=== PATIENT | male | born 2000 | race Two or more races ===

== ENCOUNTER 2024-09-08 21:59 | Emergency (ER) | payer OTHER ==
[~2024-09-08] VITALS: Ht 190.5 cm; Wt 90.2 kg
[2024-09-08 23:11] VITALS: BP 137/62; PULSE 87; RESP 19; TEMP 98.6; O2SAT 96
[2024-09-08] MEDS ORDERED: LIDOCAINE HCL 2 % INJ 2ML MPF NEB ONE (23:30)
--- NOTE | 2024-09-09 00:11 | DVH ---
CLINICAL INDICATION: DOG BITE PUNCTURE WOUND PALM TECHNIQUE: XY R HAND 3 VIEW XRAY Comparison: None FINDINGS/IMPRESSION: : 1. No acute fracture or traumatic malalignment. 2. Normal mineralization alignment. Joint spaces are preserved. 3. No radiopaque foreign body 4. Soft tissue swelling and soft tissue emphysema and laceration at the volar aspect of the 3rd digit at the level of the distal middle phalanx and distal interphalangeal joint.
[2024-09-09] MEDS ORDERED: AUG875T PO (00:48)
--- NOTE | 2024-09-09 00:48 | ED.PDOC ---
History of Present Illness(SKN HPI Comments THIS IS A 24-YEAR-OLD MALE PRESENTS TO THE ED STATUS POST DOG BITE. PATIENT STATES SHE HAD A PUSHES DOG'S FACE SOY FROM THE YOUNGER CHILD AND A BIT HIS RIGHT HAND IN THE PALM ASPECT. NOTED 1/2 INCH LACERATION BLEEDING CONTROLLED NO NOTED DRAINAGE NOTED SURROUNDING ERYTHEMA SENSORY STRENGTH AND MOTION INTACT DENIES NUMBNESS OR WEAKNESS Chief Complaint: Animal Bite Time Seen by MD: 22:00 History of Present Illness: Nurses Notes, Medications, Allergies Allergies: Coded Allergies: NO KNOWN ALLERGIES (Unverified , 09/08/24) Home Meds Active Scripts Amoxicillin & Pot Clavulanate (AUGMENTIN TABLET) 875 Mg Tb, 1 TAB PO BID for 7 Days, #14 TAB Prov:COLUMBA PACHECO WINDOW SHADE ESTIMATOR 09/09/24 Information Source: Significant Other Mode of Arrival: Ambulatory Past Medical History PAST MEDICAL HISTORY: Denies Surgical History: Denies all surgeries Family History Family History: Reviewed,noncontributory to illness Social History Smoker: Non-Smoker Alcohol: Denies ETOH Use Drugs: Denies Drug Use Constitutional: denies: chills, diaphoresis, fatigue, fever, malaise, sweats, weakness, others EENTM: denies: blurred vision, double vision, ear bleeding, ear discharge, ear drainage, ear pain, ear ringing, eye pain, eye redness, hearing loss, mouth pain, mouth swelling, nasal discharge, nose bleeding, nose congestion, nose pain, photophobia, tearing, throat pain, throat swelling, voice changes, others Respiratory: denies: cough, hemoptysis, orthopnea, SOB at rest, shortness of breath, SOB with excertion, stridor, wheezing, others Cardiovascular: denies: chest pain, dizzy spells, diaphoresis, Dyspnea on exertion, edema, irregular heart beat, left arm pain, lightheadedness, palpitations, PND, syncope, others Gastrointestinal: denies: abdomen distended, abdominal pain, blood streaked bowels, constipated, diarrhea, dysphagia, difficulty swallowing, hematemesis, melena, nausea, poor appetite, poor fluid intake, rectal bleeding, rectal pain, vomiting, others Genitourinary: denies: burning, dysuria, flank pain, frequency, hematuria, incontinence, penile discharge, penile sore, pain, testicle pain, testicle swelling, urgency, others Neurological: denies: dizziness, fainting, headache, left sided numbness, left sided weakness, numbness, paresthesia, pre-existing deficit, right sided numbness, right sided weakness, seizure, speech problems, tingling, tremors, weakness, others Musculoskeletal: denies: back pain, gout, joint pain, joint swelling, muscle pain, muscle stiffness, neck pain, others Integumetry: reports: laceration (RIGHT HAND PALM); denies: bruises, change in color, change in hair/nails, dryness, lesions, lumps, rash, wounds, others Allergic/Immunocompromised: denies: Difficulty Healing, Frequent Infections, Hives, Itching, others Hematologic/Lymphatic: denies: anemia, blood clots, easy bleeding, easy bruising, swollen glands, others Endocrine: denies: excessive hunger, excessive sweating, excessive thirst, excessive urination, flushing, intolerance to cold, intolerance to heat, unexplained weight gain, unexplained weight loss, others Psychiatric: denies: anxiety, bipolar disorder, depression, hopeless, panic disorder, schizophrenia, sleepless, suicidal, others Physical Exam General Appearance: No Apparent Distress, Normal HEENT: Pharynx Normal Neck: Full Range of Motion, Non-Tender Respiratory: Lungs Clear, No Respiratory Distress, Normal Breath Sounds Cardiovascular: No Edema, No Murmur, Normal Peripheral Pulses, Regular Rate/Rhythm Breast Exam: Deferred Gastrointestinal: Non Tender, Soft Genitalia: Deferred Pelvic: Deferred Rectal: Deferred Extremities: Normal capillary refill, Normal inspection, Normal range of motion, Non-tender, No pedal edema Musculoskeletal : Apperance: Normal Neurologic: Alert, 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 Was a procedure done?: Yes Sedation Sedation?: No Informed consent obtained: Yes Laceration Repair : Location RIGHT PALM LATERAL ASPECT Length 1.5 CM Anesthetic: Lidocaine, Without epi Laceration Repair Prep: Saline, by Irrigation Laceration Repair Wound Comple: epidermis/dermis repair Laceration Repair: Number of sutures (1 SUTURE LOOSE TO ENCOURAGE DRAINAGE GOOD APPROXIMATION), Simple Informed consent obtained: Yes Risks, benefits, and alternati: Yes Notes PATIENT TOLERATED WELL WITH MINIMAL BLOOD LOSS Differential Diagnosis (INTG) Differential Diagnosis: Fracture, Laceration, Puncture Wound X-Ray, Labs, Meds, VS Vital Signs Date Time Temp Pulse Resp B/P (MAP) Pulse Ox O2 Delivery O2 Flow Rate FiO2 09/08/24 23:11 87 19 96 Room Air 09/08/24 23:11 98.6 87 19 137/62 (87) 96 98.6 09/08/24 22:07 98.4 104 16 126/61 (82) 97 X-Ray, Labs, Meds, VS Comment SEE PROCEDURE NOTE. STARTED PROPHYLACTICALLY ON ANTIBIOTICS AUGMENTIN TWICE DAILY X7 DAYS. ADVISED TO FOLLOW UP 5 7 DAYS FOR SUTURE REMOVAL AND WOUND RE- EVALUATION FOLLOW UP WITH PCP IN 2-3 DAYS NECESSARY ER RETURN PRECAUTIONS GIVEN PATIENT INDICATED UNDERSTANDING AND AGREES WITH DISCHARGE PLAN OF CARE. Time of 1ST Reevaluation: 00:45 Reevaluation 1ST: Improved Patient Education/Counseling: Treatment Family Education/Counseling: Diagnosis, Treatment, Prognosis, Need For Follow Up Departure 1 Departure Time of Disposition: 00:45 Impression: Primary Impression: Dog bite of hand Qualified Codes: S61.451A - Open bite of right hand, initial encounter; W54.0XXA - Bitten by dog, initial encounter Disposition: 04 [facility]ILITY Condition: Stable e-Prescriptions Amoxicillin & Pot Clavulanate (AUGMENTIN TABLET) 875 Mg Tb 1 TAB PO BID for 7 Days, #14 TAB Prov: COLUMBA PACHECO 09/09/24 Discharged With: Significant Other Critical Care Note Critical Care Time?: No Stability Stability form required: No COLUMBA PACHECO Sep 09, 2024 00:48
== END 2024-09-09 01:01 | disposition home or self-care (01) ==
LOC: ER 21:59
DX: S61.411A Laceration without foreign body of right hand, initial encounter (principal); Z79.899 Other long term (current) drug therapy; W54.0XXA Bitten by dog, initial encounter; Y93.89 Activity, other specified; Y92.89 Other specified places as the place of occurrence of the external cause; Y99.8 Other external cause status
CPT/HCPCS: 12001; 73130